=== PATIENT | male | born 1970 | race Caucasian/White ===

== ENCOUNTER 2023-08-29 10:50 | Emergency (ER) | payer OTHER ==
[~2023-08-29] VITALS: Ht 177.8 cm; Wt 95.3 kg
[2023-08-29] MEDS ORDERED: CEFTRIAXONE 1 G in IV DEXTROSE 5% 50 ML IV ONE (11:15)
[2023-08-29] MEDS ORDERED: CLINDAMYCIN PHOSPHATE IV 600 MG in IV DEXTROSE 5% 100 ML IV ONE (11:30)
[2023-08-29] MEDS ORDERED: FLUCONAZOLE 400 MG /NS 200 ML PIGGYBACK IV ONE (11:30)
[2023-08-29 11:34] LABS: BASOPHILS # (AUTO) 0.1 K/UL (0.0-0.2); BASOPHILS % (AUTO) 0.8 % (0.0-2.0); EOSINOPHILS # (AUTO) 0.3 K/uL (0.0-0.7); HEMATOCRIT 42.6 % (36.7-47.1); HEMOGLOBIN 14.6 g/dL (12.5-16.3); LYMPHOCYTES # (AUTO) 2.3 K/uL (0.8-4.8); LYMPHOCYTES % (AUTO) 32.1 % (20.5-51.5); MEAN CORPUSCULAR HEMOGLOBIN 31.4 uug (23.8-33.4); MEAN CORPUSCULAR HGB CONC 34 g/dL (32.5-36.3); MEAN CORPUSCULAR VOLUME 91.7 fL (73.0-96.2); MONOCYTES # (AUTO) 0.5 K/uL (0.1-1.30); NEUTROPHILS # (AUTO) 4.1 K/uL (1.8-8.9); NEUTROPHILS % (AUTO) 56.1 % (38.5-71.5); PLATELET COUNT (AUTO) 239 K/uL (152-348); RED BLOOD CELL COUNT(AUTO) 4.64 MIL/uL (4.06-5.63); RED CELL DISTRIBUTION WIDTH 13.8 % (12.1-16.2); WHITE BLOOD COUNT (AUTO) 7.3 K/uL (3.6-10.2)
[2023-08-29] MEDS ORDERED: FLUCONAZOLE 200 MG/100 ML PIGGYBACK ONE (11:38)
[2023-08-29 11:47] LABS: CALCIUM 8.8 mg/dL (8.5-10.1); CREATININE 0.9 mg/dL (0.6-1.3); POTASSIUM 3.9 mmol/L (3.5-5.1)
[2023-08-29 11:50] LABS: DIFFERENTIAL COMMENT 1
[2023-08-29 11:53] LABS: ALBUMIN 3.5 g/dL (3.4-5.0); BILIRUBIN,TOTAL 0.8 mg/dL (0.2-1.0); TOTAL PROTEIN, SERUM 7.4 g/dL (6.4-8.2)
[2023-08-29] MEDS ORDERED: FLUC200T PO (13:35)
[2023-08-29] MEDS ORDERED: MUPI22OI2 TP (13:35)
[2023-08-29] MEDS ORDERED: CLIN-118 PO (13:35)
[2023-08-29 14:28] VITALS: BP 129/71; O2SAT 99
== END 2023-08-29 13:40 | disposition home or self-care (01) ==
LOC: ER 10:50
DX: L03.116 Cellulitis of left lower limb (principal); L03.115 Cellulitis of right lower limb
CPT/HCPCS: 99284; 96365; 96375; 80053; 85025; 87040 ×2; 36415; 73630; 83605; J3490; J1450 ×2; A4606; A4663

== ENCOUNTER 2023-09-09 13:42 | Emergency (ER) | payer OTHER ==
[~2023-09-09] VITALS: Ht 177.8 cm; Wt 95.3 kg
[~2023-09-09 13:42] MED LIST: CLIN-118 PO; FLUC200T PO; MUPI22OI2 TP
[2023-09-09] MEDS ORDERED: MUPI22OI2 TP (15:14)
[2023-09-09] MEDS ORDERED: CLIN-118 PO (15:14)
[2023-09-09] MEDS ORDERED: HYDR-4697 TP (15:14)
[2023-09-09] MEDS ORDERED: FLUC200T PO (15:14)
[2023-09-09] MEDS ORDERED: CLOT15CR5 TP (15:15)
[2023-09-09 15:40] VITALS: BP 131/77; O2SAT 96
== END 2023-09-09 15:40 | disposition home or self-care (01) ==
LOC: ER 13:42
DX: B35.3 Tinea pedis (principal); Z79.2 Long term (current) use of antibiotics; Z79.899 Other long term (current) drug therapy
CPT/HCPCS: A4606; A4663